=== PATIENT | male | born 1995 | race African-American/Black ===

== ENCOUNTER 2017-05-16 18:04 | Emergency (ER) | payer MEDICAID ==
[2017-05-16 18:05] VITALS: BP 154/84; PULSE 60; RESP 12; TEMP 98.6; O2SAT 98
--- NOTE | 2017-05-16 21:11 | PD ---
HPI Chief Complaint: Eye Problems/Injury Time Seen by Provider: 21:02 Travel History International Travel<30 days: No Contact w/Intl Traveler<30days: No Traveled to known affect area: No History of Present Illness HPI 22-year-old white male presents to emergency department for evaluation of blood in his eyes. He states that he was sick last evening and had several episodes of severe emesis. He hasn't noticed areas of blood vessel rupture in both eyes. He denies any visual changes. No pain. He denies any foreign body sensation. No history of easy bruising. No bleeding dyscrasias. No family history of bleeding dyscrasias. He denies any history of prior bleeding or easy bruising. He states that he is no longer feeling nauseous and vomiting. It was a single episode late last evening. He has not vomited today. He feels back to normal. [facility] Past Medical History Medical History: Denies Significant Hx Tetanus Vaccination: < 5 Years Past Surgical History Surgical History: No Previous Surgery Social History Alcohol Use: No Tobacco Use: No Review of Systems General / Constitutional: No: Fever Gastrointestinal: Positive: Nausea, Vomiting, No: Abdominal Pain, Hematemesis, Hematochezia Genitourinary: No: Frequency, Hematuria Physical Exam Narrative GENERAL: Well-developed, well-nourished in no acute distress. Nontoxic appearing. HEAD: Normocephalic, atraumatic. EYES: Pupils equal round and reactive. Extraocular motions intact. No scleral icterus. No injection or drainage. Patient has bilateral subconjunctival hemorrhages. ENT: TMs clear without erythema. The external auditory canals clear. Nose: clear . Posterior pharynx is pink and moist. No tonsillar edema or exudate. Uvula midline. Airway patent. NECK: Trachea midline.Supple, nontender, moves head freely. No central bony tenderness or spasm. CARDIOVASCULAR: Regular rate and rhythm without murmurs, gallops, or rubs. RESPIRATORY: Clear to auscultation. Breath sounds equal bilaterally. No wheezes , rales, or rhonchi. GASTROINTESTINAL: Abdomen soft, non-tender, nondistended. No hepato-splenomegaly , or palpable masses. No guarding. EXTREMITIES: No clubbing, cyanosis, or edema. No joint tenderness, effusion, or edema noted. BACK: Nontender without deformity or crepitance. No flank tenderness. Data Data Last Documented VS Vital Signs Date Time Temp Pulse Resp B/P (MAP) Pulse Ox O2 Delivery O2 Flow Rate FiO2 05/16/17 18:05 98.6 60 12 154/84 (107) 98 Orders Orders Complete Blood Count With Diff (05/16/17 21:06) Prothrombin Time / Inr (Pt) (05/16/17 21:06) Act Partial Throm Time (Ptt) (05/16/17 21:06) Ed Discharge Order (05/16/17 22:10) Labs Laboratory Tests Test 05/16/17 21:30 White Blood Count 6.6 TH/MM3 Red Blood Count 5.43 MIL/MM3 Hemoglobin 15.0 GM/DL Hematocrit 45.3 % Mean Corpuscular Volume 83.3 FL Mean Corpuscular Hemoglobin 27.6 PG Mean Corpuscular Hemoglobin Concent 33.1 % Red Cell Distribution Width 13.3 % Platelet Count 219 TH/MM3 Mean Platelet Volume 7.9 FL Neutrophils (%) (Auto) 52.8 % Lymphocytes (%) (Auto) 35.6 % Monocytes (%) (Auto) 9.7 % Eosinophils (%) (Auto) 1.6 % Basophils (%) (Auto) 0.3 % Neutrophils # (Auto) 3.5 TH/MM3 Lymphocytes # (Auto) 2.4 TH/MM3 Monocytes # (Auto) 0.6 TH/MM3 Eosinophils # (Auto) 0.1 TH/MM3 Basophils # (Auto) 0.0 TH/MM3 CBC Comment DIFF FINAL Differential Comment Prothrombin Time 11.9 SEC Prothromb Time International Ratio 1.1 RATIO Activated Partial Thromboplast Time 28.3 SEC MDM Medical Decision Making Medical Screen Exam Complete: Yes Emergency Medical Condition: Yes Medical Record Reviewed: Yes Interpretation(s) Laboratory Tests Test 05/16/17 21:30 White Blood Count 6.6 TH/MM3 Red Blood Count 5.43 MIL/MM3 Hemoglobin 15.0 GM/DL Hematocrit 45.3 % Mean Corpuscular Volume 83.3 FL Mean Corpuscular Hemoglobin 27.6 PG Mean Corpuscular Hemoglobin Concent 33.1 % Red Cell Distribution Width 13.3 % Platelet Count 219 TH/MM3 Mean Platelet Volume 7.9 FL Neutrophils (%) (Auto) 52.8 % Lymphocytes (%) (Auto) 35.6 % Monocytes (%) (Auto) 9.7 % Eosinophils (%) (Auto) 1.6 % Basophils (%) (Auto) 0.3 % Neutrophils # (Auto) 3.5 TH/MM3 Lymphocytes # (Auto) 2.4 TH/MM3 Monocytes # (Auto) 0.6 TH/MM3 Eosinophils # (Auto) 0.1 TH/MM3 Basophils # (Auto) 0.0 TH/MM3 CBC Comment DIFF FINAL Differential Comment Prothrombin Time 11.9 SEC Prothromb Time International Ratio 1.1 RATIO Activated Partial Thromboplast Time 28.3 SEC Differential Diagnosis MDM: High Differential diagnoses: Viral syndrome, blood dyscrasia, vomiting, subconjunctival hemorrhage Narrative Course Patient's CBC and coags are normal. This is subconjunctival hemorrhage status was vomiting Diagnosis Primary Impression: Subconjunctival hemorrhage of both eyes Patient Instructions: General Instructions Additional Instructions: Rest. Avoid aspirin products for the next week. Do not strain, bear down or cough for the next week. Expect your bruising to resolve over 2 weeks. Follow-up with an eye doctor for a second opinion. Return to the ER for emergencies. Med/Other Pt SpecificInfo: No Meds Exist/No RX given Disposition: 01 DISCHARGE HOME Condition: Stable Reynaldo Bishop May 16, 2017 21:11
[2017-05-16 21:48] LABS: AUTOMATED NEUTROPHIL # 3.5 TH/MM3 (1.8-7.7); BASOPHIL % 0.3 % (0.0-2.0); EOSINOPHIL # 0.1 TH/MM3 (0-0.4); EOSINOPHIL % 1.6 % (0.0-4.0); HEMATOCRIT 45.3 % (39.0-51.0); HEMO FLAGS DIFF FINAL; LYMPH % 35.6 % (9.0-44.0); LYMPHOCYTE # 2.4 TH/MM3 (1.0-4.8); MEAN CELL VOLUME 83.3 FL (80.0-100.0); MEAN CORPUSCULAR HEMOGLOBIN 27.6 PG (27.0-34.0); MEAN CORPUSCULAR HGB CONC 33.1 % (32.0-36.0); MONO % 9.7 % (0.0-8.0); NEUT % 52.8 % (16.0-70.0); PLATELET COUNT 219 TH/MM3 (150-450); RED BLOOD COUNT 5.43 MIL/MM3 (4.50-5.90); RED CELL DISTRIBUTION WIDTH 13.3 % (11.6-17.2); WHITE BLOOD COUNT 6.6 TH/MM3 (4.0-11.0)
[2017-05-16 22:00] LABS: APTT (PATIENT) 28.3 SEC (24.3-30.1); INTERNATIONAL NORMALIZED RATIO 1.1 RATIO; PROTHROMBIN TIME - PATIENT 11.9 SEC (9.8-11.6)
== END 2017-05-16 22:27 | disposition home or self-care (01) ==
LOC: NEPK 18:04
DX: H11.33 Conjunctival hemorrhage, bilateral (principal); R11.2 Nausea with vomiting, unspecified
CPT/HCPCS: 85025; 85610; 85730; 99283